=== PATIENT | male | born 1935 | race Caucasian/White ===

== ENCOUNTER 2016-11-23 14:08 | Observation (INO) ==
[2016-11-23] MEDS ORDERED: 0.9 % Sodium Chloride 1,000 ML IVC ONE ×2 (14:16→15:25)
--- NOTE | 2016-11-23 14:20 | Emergency Department Note ---
Disposition Clinical Impression: Dehydration, Elevated LFTs, Total bilirubin, elevated, ROSALINDA (acute kidney injury ) Leukocytosis Qualifiers: Leukocytosis type: unspecified Qualified Code(s): D72.829 - Elevated white blood cell count, unspecified Disposition: Admitted As Inpatient Condition: Fair Time of Disposition: 16:01 Nausea/Vomiting/Diarrhea HPI - General Chief complaint: ED Weakness Stated complaint: Dehydration Time Seen by Provider: 11/23/16 14:14 Source: patient, EMS Mode of arrival: EMS Limitations: no limitations Nursing Notes Reviewed: Yes Vital Signs Reviewed: Yes - History of Present Illness HPI Narrative: Patient is a 80-year-old male with past medical history of diabetes. He presents today via EMS due to nausea, vomiting, concerns for dehydration, general weakness. Patient says that he has been having episodes of nonbloody emesis for the past 4-5 days. Has not been able to keep any food down. He has been able to keep some liquids down. Denies any abdominal pain except for some mild soreness after vomiting. Denies any fevers, chest pain, shortness of breath, abdominal pain, URI symptoms, dysuria or hematuria. light headedness. EMS states that when they picked the patient up, BP was 80s over 50s. He was also tachycardic when he first got picked up. He was able to ambulate to the squad without any difficulty. - Related Data Home Medications Medication Instructions Recorded Confirmed Aspirin 81 mg PO DAILY 11/23/16 11/23/16 Losartan Potassium [Cozaar] 50 mg PO DAILY 11/23/16 11/23/16 Metformin HCl [Glucophage Xr] 750 mg PO QPM 11/23/16 11/23/16 Mirtazapine [Remeron] 15 mg PO HS 11/23/16 11/23/16 Multivit-Min/FA/Lycopen/Lutein 1 each PO DAILY 11/23/16 11/23/16 [Centrum Silver Tablet] Allergies Allergy/AdvReac Type Severity Reaction Status Date / Time No Known Allergies Allergy Verified 11/23/16 15:43 All systems ED: reviewed and negative except as stated. Constitutional: Denies: fever Cardiovascular: Denies: chest pain, palpitations Respiratory: Denies: cough, dyspnea, wheezes Gastrointestinal: Denies: nausea, vomiting, diarrhea Genitourinary: Denies: urgency, dysuria, frequency Musculoskeletal: Denies: back pain, neck pain Integumentary: Denies: rash Neurological: Reports: weakness. Denies: headache, numbness, paresthesias Psychiatric: Denies: anxiety, depression Past Medical History - Past Medical History Attestation: Yes The following information was validated with the patient. Source: patient Medical history: Reports: diabetes Physical Exam - General Limitations: no limitations General appearance: alert, in no apparent distress - Head Head exam: atraumatic, normocephalic, normal inspection - Eye Eye exam: Present: normal appearance, PERRL, EOMI - ENT ENT exam: mucous membranes moist, mucous membranes dry - Neck Neck exam: Present: normal inspection, full ROM, trachea midline - Chest Chest inspection: Present: normal inspection, symmetric chest wall rise - Respiratory Respiratory exam: Present: normal lung sounds bilaterally - Cardiovascular Cardiovascular exam: Present: regular rate, normal rhythm, normal heart sounds - Abdominal Exam Abdominal exam: Present: soft, Non-Tender. Absent: tenderness, distention, guarding, rebound, rigidity - Extremities Exam Extremities exam: Present: normal inspection, full ROM. Absent: tenderness, pedal edema - Neurological Exam Neurological exam: Present: alert, oriented X3 - Psychiatric Psychiatric exam: Present: normal affect, normal mood - Skin Skin exam: Present: warm, dry, intact, normal color Course Course Narrative: Blood pressure improved to 100/60 after 1L of NS by EMS, the rest of the vitals were within normal limits. Abdomen exam benign. Patient did have dry mucous membranes on exam. We will obtain basic blood work, troponin, EKG. EKG shows sinus rhythm with occasional PVC, no acute ST elevation or depression. Will order another 1 L normal saline bolus and continue to monitor blood pressure. 15:32 Patient has mild leukocytosis, ROSALINDA with creatinine doubled to 2.34 from previous lab value, elevated total bili (bedside US performed and gallbladder was not able to be seen on exam, no RUQ pain on exam). Will admit for the above plus dehydration. Will give another 1L fluid bolus. Patient continues to deny any abdominal pain, nausea. He has not vomited while in department. Declines pain or nausea medicine at this time. Vital Signs Temperature 97.9 F 11/23/16 14:14 Pulse Rate 95 11/23/16 14:14 Respiratory Rate 18 04/15/17 14:14 Blood Pressure 100/60 04/15/17 14:14 O2 Sat by Pulse Oximetry 94 11/23/16 14:14 Temperature 97.9 F 11/23/16 14:14 Pulse Rate 95 11/23/16 14:14 Respiratory Rate 18 11/23/16 14:14 Blood Pressure 100/60 11/23/16 14:14 O2 Sat by Pulse Oximetry 94 11/23/16 14:14 Oxygen Delivery Oxygen Delivery Room Air Nausea/Vomiting/Diarrhea - [facility] Narrative Medical decision making narrative: Blood pressure improved to 100/60 after 1L of NS by EMS, the rest of the vitals were within normal limits. Abdomen exam benign. Patient did have dry mucous membranes on exam. We will obtain basic blood work, troponin, EKG. EKG shows sinus rhythm with occasional PVC, no acute ST elevation or depression. Will order another 1 L normal saline bolus and continue to monitor blood pressure. 15:32 Patient has mild leukocytosis, ROSALINDA with creatinine doubled to 2.34 from previous lab value, elevated total bili (bedside US performed and gallbladder was not able to be seen on exam, no RUQ pain on exam). Will admit for the above plus dehydration. Will give another 1L fluid bolus. Patient continues to deny any abdominal pain, nausea. He has not vomited while in department. Declines pain or nausea medicine at this time. I examined this patient and my medical decision-making was reviewed with the MARBLE WORKER/PA/Advanced Practice Nurse/Resident Physician. I agree with the documented findings, disposition and treatment plan as described except to the extent set forth below. Saw this patient on arrival with EMS and Dr. Barrios, I agree with his evaluation and management plan, supravascular the patient's stay. Patient presents today with some nausea and vomiting that he has felt dehydrated last couple days. Blood pressure is initially 80 systolic when the squad got there they started him on fluid and is feeling better. Looks like his pressure runs about 110 normally. No abdominal pain or chest pain can undergo workup on him and reassessed. He is in agreement with plan. He is responding to fluids this time. 1520 hrs.: Patient's creatinine has doubled from his dehydration. He has some elevation of his LFTs but no abdominal pain. We tried to get a bedside ultrasound assesses gallbladder was difficult to visualize. Does not I abdominal pain at this time are to bring him in to the hospital. Impression is dehydration nausea and vomiting and acute kidney injury. Patient is agreeing to this admission. - Medical Records Medical records reviewed: Yes I reviewed the patient's medical records. - Lab Data Lab results reviewed: Yes I reviewed the patient's lab results. Result diagrams: 11/23/16 14:44 11/23/16 14:44 Lab Results 11/23/16 11/23/16 11/23/16 Range/Units 14:44 14:44 14:44 WBC 14.9 H (4.3-11.1) K/mcL RBC 3.93 L (4.19-5.50) M/mcL Hgb 12.2 L (12.9-16.9) g/dL Hct 35.6 L (37.5-50.1) % MCV 90.6 (83.0-100.0) fL MCH 31.0 (28.0-33.3) pg MCHC 34.3 (31.6-35.5) g/dL RDW 12.8 (11.5-14.5) % Plt Count 332 (140-400) K/mcL MPV 9.8 (9.4-12.4) fL Seg Neutrophils % 66.0 % Band Neutrophils % 14.0 H (0-4) % Lymphocytes % 8.0 % Monocytes % 2.0 % Eosinophils % 10.0 % Neutrophils # 11.9 H (1.6-8.9) K/mcL Lymphocytes # 1.2 (0.6-4.6) K/mcL Monocytes # 0.3 (0.0-1.3) K/mcL Eosinophils # 1.5 H (0.0-0.6) K/mcL Platelet Estimate Normal (Normal) Immature Plt Fraction 3.2 (1.1-6.1) % Hypochromasia Present A (Not Present) Sodium 133 L (136-145) mEq/L Potassium 3.4 L (3.5-4.5) mEq/L Chloride 104 (98-109) mEq/L Carbon Dioxide 18 L (19-29) mEq/L BUN 93 H (8-26) mg/dL Creatinine 2.34 H (0.72-1.25) mg/dL Est GFR ( Amer) 33 L (> 60) Est GFR (Non-Af Amer) 27 L (> 60) BUN/Creatinine Ratio 40 H (6-26) Glucose 161 H (70-99) mg/dL POC Glucose (58-89) Calculated Osmolality 308 H (280-300) Calcium 7.5 L (8.6-10.8) mg/dL Total Bilirubin 1.8 H (0.2-1.2) mg/dL AST 181 H (5-34) Units/L ALT 208 H (0-55) Units/L Alkaline Phosphatase 66 (38-126) Units/L Troponin I 0.02 (0-0.03) ng/mL Serum Total Protein 5.8 L (6.0-8.3) g/dL Albumin 2.5 L (3.5-5.0) g/dL Globulin 3.3 (2.4-3.5) g/dL Albumin/Globulin Ratio 0.8 L (1.1-2.2) 11/23/16 Range/Units 14:47 WBC (4.3-11.1) K/mcL RBC (4.19-5.50) M/mcL Hgb (12.9-16.9) g/dL Hct (37.5-50.1) % MCV (83.0-100.0) fL MCH (28.0-33.3) pg MCHC (31.6-35.5) g/dL RDW (11.5-14.5) % Plt Count (140-400) K/mcL MPV (9.4-12.4) fL Seg Neutrophils % % Band Neutrophils % (0-4) % Lymphocytes % % Monocytes % % Eosinophils % % Neutrophils # (1.6-8.9) K/mcL Lymphocytes # (0.6-4.6) K/mcL Monocytes # (0.0-1.3) K/mcL Eosinophils # (0.0-0.6) K/mcL Platelet Estimate (Normal) Immature Plt Fraction (1.1-6.1) % Hypochromasia (Not Present) Sodium (136-145) mEq/L Potassium (3.5-4.5) mEq/L Chloride (98-109) mEq/L Carbon Dioxide (19-29) mEq/L BUN (8-26) mg/dL Creatinine (0.72-1.25) mg/dL Est GFR ( Amer) (> 60) Est GFR (Non-Af Amer) (> 60) BUN/Creatinine Ratio (6-26) Glucose (70-99) mg/dL POC Glucose 153 H (58-89) Calculated Osmolality (280-300) Calcium (8.6-10.8) mg/dL Total Bilirubin (0.2-1.2) mg/dL AST (5-34) Units/L ALT (0-55) Units/L Alkaline Phosphatase (38-126) Units/L Troponin I (0-0.03) ng/mL Serum Total Protein (6.0-8.3) g/dL Albumin (3.5-5.0) g/dL Globulin (2.4-3.5) g/dL Albumin/Globulin Ratio (1.1-2.2) - EKG Data EKG attestation: Yes I reviewed and interpreted this EKG. EKG results narrative: 11/23/2016 at 14:22. Normal sinus rhythm with occasional PVC. Rate 95. [place] 159. QRS 92. QTC 440. Normal axis. No acute ST elevation or depression. No previous EKG for comparison. S.B.A.R. - S.B.ABharti Situation: Demographics, MOA Background: Presenting Complaint, Relevant PMH, Meds, & Allergies Assessment: Vital Signs, Course and respsone to treatment, Exam Concerns, Patient/Family Expectation, Pertinant Lab Results, Outstanding Labs Recommendation: Barrier(s) to disposition, Recommendation based on pending studies, treatments, or consults S.B.A.Jermaine Report Given to: Dr. Arsenio Aburto Repor Time: 16:00
[2016-11-23 14:51] LABS: Hematocrit 35.6 % (37.5-50.1); Hemoglobin 12.2 g/dL (12.9-16.9); Immature Platelets 3.2 % (1.1-6.1); Mean Corpuscular HGB Conc 34.3 g/dL (31.6-35.5); Mean Corpuscular Volume 90.6 fL (83.0-100.0); Mean Platelet Volume 9.8 fL (9.4-12.4); Platelet Count 332 K/mcL (140-400); Red Blood Count 3.93 M/mcL (4.19-5.50); Red Cell Distribution Width 12.8 % (11.5-14.5)
[2016-11-23 15:07] LABS: Albumin 2.5 g/dL (3.5-5.0); Albumin/Globulin Ratio 0.8 (1.1-2.2); Bilirubin,Total 1.8 mg/dL (0.2-1.2); Calcium 7.5 mg/dL (8.6-10.8); Globulin 3.3 g/dL (2.4-3.5); Potassium 3.4 mEq/L (3.5-4.5); Total Protein 5.8 g/dL (6.0-8.3)
[2016-11-23 15:08] LABS: Eosinophils # 1.5 K/mcL (0.0-0.6); Lymphocytes # 1.2 K/mcL (0.6-4.6); Monocytes # 0.3 K/mcL (0.0-1.3); Neutrophils # 11.9 K/mcL (1.6-8.9); Platelet Estimate Normal (Normal)
[2016-11-23 15:09] LABS: Hypochromasia Present (Not Present)
[2016-11-23] MEDS ORDERED: Ondansetron 4 MG/2 ML VIAL IVP PRN (16:18)
[2016-11-23] MEDS ORDERED: Naloxone 0.4 MG/ML INJ IVP PRN (16:18)
--- NOTE | 2016-11-23 16:18 | Internal Med History&Physical ---
Date of Encounter: 11/24/16 Time of Encounter: 16:17 Assessment and Plan (1) Food poisoning Current visit: Yes Status: Acute possible food posioning from eating the coconut pie, he has been vomiting multiple times. looks dehydrated, supportive treatment with IVF and anti emetics vitals stable/ will start on soft diet, advance as tolerated. Qualifiers: Encounter type: initial encounter Qualified Code(s): T62.91XA - Toxic effect of unspecified noxious substance eaten as food, accidental (unintentional ), initial encounter (2) Dehydration Current visit: Yes Status: Acute 2/2 n/v multiple episodes going on for the last 4-5 days. will continue IVF, oral hydration as tolerated. (3) Elevated LFTs Current visit: Yes Status: Acute unclear etiology, no h.o viral hepatitis in the past. will trend liver enzymes. non alcoholic no abdominal pain, may be transient 2/2 viral GE/food poisoning. (4) ROSALINDA (acute kidney injury) Current visit: Yes Status: Acute pre renal most likely from vomiting will continue IVF repeat chem, avoid nephrotoxic drugs. (5) COPD (chronic obstructive pulmonary disease) Current visit: Yes Status: Acute stable, not in exacerbation, will keep alb neb prn . sating high 90s in room air o2 as needed. Qualifiers: COPD type: emphysema Emphysema type: unspecified Qualified Code(s): J43.9 - Emphysema, unspecified Internal Medicine - H&P: HPI Chief complaint: n/v Admitted From: Home Plans for Post Hospital Care: Home History of present illness: Mr. 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 He presents today via EMS due to nausea, vomiting, concerns for dehydration, general weakness. Patient says that he has been having episodes of nonbloody emesis for the past 4-5 days. Has not been able to keep any food down. HE says he had a coconut pie on friday night and since the next morning he has been throwing up. He has been able to keep some liquids down. Denies any abdominal pain except for some mild soreness after vomiting. Denies any fevers, chest pain, shortness of breath, abdominal pain, URI symptoms, dysuria or hematuria. light headedness. EMS states that when they picked the patient up, BP was 80s over 50s. He was also tachycardic when he first got picked up. He was able to ambulate to the squad without any difficulty. he says the last time he vomited was this morning. Past Med Surg Social Fam HX - Past Medical History Medical history: diabetes Psychiatric history: no psych history - Social History Smoking Status: Never smoker Smokeless Tobacco Status: No Alcohol use: none Drug use: none - Family History Father Living Status: Hx Family Respiratory Disorders: Yes Hx Family Endocrine Disorder: Yes Internal Medicine - H&P: Meds Aspirin 81 mg PO DAILY 11/23/16 [History] Losartan Potassium [Cozaar] 50 mg PO DAILY 11/23/16 [History] Metformin HCl [Glucophage Xr] 750 mg PO QPM 11/23/16 [History] Mirtazapine [Remeron] 15 mg PO HS 11/23/16 [History] Multivit-Min/FA/Lycopen/Lutein [Centrum Silver Tablet] 1 each PO DAILY 11/23/16 [History] Proair Hfa 90 mcg IH Q6HR PRN 11/23/16 [History] Allergies No Known Allergies Allergy (Verified 11/23/16 15:43) All Systems PM: A 10-system review of systems was performed and is negative for pertinent findings except as documented above in the HPI. - Constitutional Vitals: Temp Pulse Resp BP Pulse Ox 0 F L 95 18 113/69 94 11/23/16 16:06 11/23/16 14:14 11/23/16 16:06 11/23/16 16:06 11/23/16 14:14 General appearance: Present: A&O X 3, no acute distress Exam: Mucous membranes look dry. Neck supple. Chest bilateral clear, no added sounds. CVS S1-S2, no murmurs rubs or gallops. Abdomen soft, nontender, bowel sounds are present. Extremities no edema Internal Med - H&P Results - Labs CBC & Chem 7: 11/24/16 05:05 11/24/16 05:05
[2016-11-23] MEDS ORDERED: D5% in Water 1,000 ML IVC PRN (16:19)
[2016-11-23] MEDS ORDERED: Dextrose Gel 15 GM PO PRN ×2 (16:19)
[2016-11-23] MEDS ORDERED: *HR* Dextrose 50 % in Water (Syg) 50 ML SYRINGE IVP PRN (16:19)
[2016-11-23] MEDS ORDERED: Albuterol 2.5 MG/3 ML NEBULIZER IH PRN (17:45)
[2016-11-23] MEDS: Insulin LISPRO 300 UNITS/3 ML VIAL SQ SCH ×2 (18:18→21:42)
[2016-11-23 18:20] LABS: Bilirubin,Urine Negative (Negative); Blood,Urine Small (Negative); Clarity,Urine Cloudy (Clear); Color,Urine Yellow (Yellow); Glucose,Urine (UA) Normal (Normal); Ketones,Urine Negative (Negative); Leukocyte Esterase,Urine Negative (Negative); Nitrite,Urine Negative (Negative); Protein,Urine 30 mg/dL (Neg-Trace); Specific Gravity,Urine 1.021 (1.010-1.025); Urobilinogen,Urine Normal (Normal)
[2016-11-23 18:23] LABS: RBC,Urine 0-3 per hpf (0-3); Squamous Epithelial Cell,Urine Moderate per lpf (None-Few); WBC,Urine 0-3 per hpf (0-3)
[2016-11-23] MEDS: 0.9 % Sodium Chloride 1,000 ML IVC SCH (18:23)
[2016-11-23 18:36] LABS: Bacteria,Urine Few per hpf (None-Few); Granular Casts,Urine Few per lpf (None Seen)
[2016-11-23] MEDS: Mirtazapine 15 MG TABLET PO SCH (21:43)
[2016-11-24] MEDS: 0.9 % Sodium Chloride 1,000 ML IVC SCH ×2 (04:23→14:57)
[2016-11-24 05:51] LABS: Basophils % 0.2 %; Eosinophils # 0.8 K/mcL (0.0-0.6); Eosinophils % 6.2 %; Hematocrit 33.8 % (37.5-50.1); Hemoglobin 11.6 g/dL (12.9-16.9); Immature Granulocytes % 0.6 % (0-4); Lymphocytes % 15.4 %; Mean Corpuscular HGB Conc 34.3 g/dL (31.6-35.5); Mean Corpuscular Hemoglobin 31.3 pg (28.0-33.3); Mean Corpuscular Volume 91.1 fL (83.0-100.0); Mean Platelet Volume 9.9 fL (9.4-12.4); Monocytes # 1.5 K/mcL (0.0-1.3); Monocytes % 11.6 %; Platelet Count 294 K/mcL (140-400); Red Blood Count 3.71 M/mcL (4.19-5.50); Red Cell Distribution Width 12.8 % (11.5-14.5)
[2016-11-24 06:00] LABS: Neutrophils # 8.5 K/mcL (1.6-8.9)
[2016-11-24] MEDS ORDERED: *HR* Enoxaparin 30 MG/0.3 ML SYRINGE SQ SCH (06:00)
[2016-11-24 06:09] LABS: Albumin 2.3 g/dL (3.5-5.0); Albumin/Globulin Ratio 0.7 (1.1-2.2); Bilirubin,Direct 0.6 mg/dL (0.0-0.5); Bilirubin,Indirect 0.5 mg/dL (0.0-1.2); Bilirubin,Total 1.1 mg/dL (0.2-1.2); Calcium 7.7 mg/dL (8.6-10.8); Globulin 3.2 g/dL (2.4-3.5); Potassium 3.7 mEq/L (3.5-4.5); Total Protein 5.5 g/dL (6.0-8.3)
[2016-11-24 06:21] LABS: Platelet Estimate Normal (Normal)
[2016-11-24] MEDS: Insulin LISPRO 300 UNITS/3 ML VIAL SQ SCH ×4 (07:32→21:18)
[2016-11-24] MEDS: Aspirin 81 MG TAB.CHEW PO SCH (08:08)
--- NOTE | 2016-11-24 10:23 | Internal Med Progress Note ---
<Theodore Burt - Last Filed: 11/24/16 10:30> Date of Encounter: 11/24/16 Time of Encounter: 10:20 - Assessment and plan (1) Nausea & vomiting Current Visit: Yes Status: Acute Assessment and plan: improving. continue PRN antiemetics and IV fluids. Qualifiers: Qualified Code(s): R11.2 - Nausea with vomiting, unspecified (2) Dehydration Current Visit: Yes Status: Acute Assessment and plan: continue IV fluids. He still appears somewhat dry with dry mucous membranes on exam. (3) Elevated LFTs Current Visit: Yes Status: Acute Assessment and plan: etiology unclear. possibly from acute illness. check a hepatitis panel. trending down. (4) Total bilirubin, elevated Current Visit: Yes Status: Resolved (5) ROSALINDA (acute kidney injury) Current Visit: Yes Status: Acute Assessment and plan: likley prerenal from dehydration. Improving good urine output Continue IVF. (6) Leukocytosis Current Visit: Yes Status: Acute Assessment and plan: trending down. Qualifiers: Leukocytosis type: unspecified Qualified Code(s): D72.829 - Elevated white blood cell count, unspecified (7) Food poisoning Current Visit: Yes Status: Acute Assessment and plan: suspicious for food poisoning given that his brother became ill as well. Qualifiers: Encounter type: initial encounter Qualified Code(s): T62.91XA - Toxic effect of unspecified noxious substance eaten as food, accidental (unintentional ), initial encounter (8) COPD (chronic obstructive pulmonary disease) Current Visit: Yes Status: Acute Assessment and plan: no exacerbation at this time. Qualifiers: COPD type: emphysema Emphysema type: unspecified Qualified Code(s): J43.9 - Emphysema, unspecified (9) Diabetes Current Visit: Yes Status: Acute Assessment and plan: NIDDM Currently at goal. continue sliding scale insulin for coverage. Qualifiers: Qualified Code(s): E11.9 - Type 2 diabetes mellitus without complications (10) DVT prophylaxis Current Visit: Yes Status: Acute Assessment and plan: change lovenox to heparin given his renal function. - Subjective Interval history: Mr. matthew is a very pleasant 80 y.o. male who was admitted for N/V dehydration and ROSALINDA. This was possibly from food poisoning. HE had cocanut pie with his brother and they both became ill thereafter. He states he has had N/V since Friday and has not been able to keep much down. He states that he is feeling better. He was able to keep down some noodles last night. He denies any diarrhea or abdominal pain. He states that he had a normal bowel movement last night. He denies any other complaints or concerns at this time. - Constitutional Vitals: Temp Pulse Resp BP Pulse Ox 98.7 F 75 18 106/71 95 11/24/16 06:58 11/24/16 06:58 11/24/16 06:58 11/24/16 06:58 11/24/16 06:58 General appearance: Present: A&O X 3, no acute distress - Head Head exam: Present: atraumatic, normocephalic - Eye Eye exam: Present: PERRL, conjuntiva pink, sclera anicteric Pupils: Present: PERRL - Neck Neck exam general surgery: Present: supple, trachea midline. Absent: lymphadenopathy - Respiratory Respiratory exam: Present: CTAB. Absent: accessory muscle use, rales, rhonchi, wheezes - Cardiovascular Cardiovascular exam: Present: RRR, +S1, +S2. Absent: diastolic murmur, gallop, rubs, systolic murmur - GI/Abdominal GI/Abdominal exam: Present: normal bowel sounds, soft, no peritoneal signs. Absent: distended, tenderness - Extremities Exam Extremities exam: Present: warm, radial pulses palpable and symetrical. Absent : calf tenderness, cyanotic, pedal edema - Neurological Exam Neurological exam: Present: oriented X3, no focal deficits - Skin Skin exam: Present: dry, intact Internal Medicine: Result - Labs CBC & Chem 7: 11/24/16 05:05 11/24/16 05:05 Labs: Short CBC 11/24/16 Range/Units 05:05 WBC 12.8 H (4.3-11.1) K/mcL Hgb 11.6 L (12.9-16.9) g/dL Hct 33.8 L (37.5-50.1) % Plt Count 294 (140-400) K/mcL Neutrophils # 8.5 (1.6-8.9) K/mcL BMP 11/24/16 05:05 Sodium 138 Potassium 3.7 Chloride 111 H Carbon Dioxide 19 BUN 59 H D Creatinine 1.39 H Glucose 128 H Calcium 7.7 L Liver Function 11/24/16 Range/Units 05:05 Total Bilirubin 1.1 (0.2-1.2) mg/dL Direct Bilirubin 0.6 H (0.0-0.5) mg/dL AST 106 H (5-34) Units/L ALT 162 H (0-55) Units/L Alkaline Phosphatase 83 (38-126) Units/L Albumin 2.3 L (3.5-5.0) g/dL Urine 11/23/16 Range/Units 18:10 Urine Color Yellow (Yellow) Urine Clarity Cloudy A (Clear) Urine pH 6.0 (5.0-8.0) pH Units Ur Specific [place] 1.021 (1.010-1.025) Urine Protein 30 H (Neg-Trace) mg/dL Urine Glucose (UA) Normal (Normal) mg/dL Consult Discharge Plan - Plan Referrals: Alek Sierra MD [Primary Care Provider] - <Juan Pablo Weiss - Last Filed: 11/24/16 11:04> Date of Encounter: 11/24/16 - Constitutional Vitals: Temp Pulse Resp BP Pulse Ox 98.7 F 75 18 106/71 95 11/24/16 06:58 11/24/16 06:58 11/24/16 06:58 11/24/16 06:58 11/24/16 06:58 Internal Medicine: Result - Labs CBC & Chem 7: 11/24/16 05:05 11/24/16 05:05 Labs: Short CBC 11/24/16 Range/Units 05:05 WBC 12.8 H (4.3-11.1) K/mcL Hgb 11.6 L (12.9-16.9) g/dL Hct 33.8 L (37.5-50.1) % Plt Count 294 (140-400) K/mcL Neutrophils # 8.5 (1.6-8.9) K/mcL BMP 11/24/16 05:05 Sodium 138 Potassium 3.7 Chloride 111 H Carbon Dioxide 19 BUN 59 H D Creatinine 1.39 H Glucose 128 H Calcium 7.7 L Liver Function 11/24/16 Range/Units 05:05 Total Bilirubin 1.1 (0.2-1.2) mg/dL Direct Bilirubin 0.6 H (0.0-0.5) mg/dL AST 106 H (5-34) Units/L ALT 162 H (0-55) Units/L Alkaline Phosphatase 83 (38-126) Units/L Albumin 2.3 L (3.5-5.0) g/dL Urine 11/23/16 Range/Units 18:10 Urine Color Yellow (Yellow) Urine Clarity Cloudy A (Clear) Urine pH 6.0 (5.0-8.0) pH Units Ur Specific [place] 1.021 (1.010-1.025) Urine Protein 30 H (Neg-Trace) mg/dL Urine Glucose (UA) Normal (Normal) mg/dL - Attending Attestation I examined this patient and my medical decision-making was reviewed with the AIDS NURSE/PA/Advanced Practice Nurse/Resident Physician. I agree with the documented findings, disposition and treatment plan as described except to the extent set forth below. ROSALINDA prerenal, iv fluids, agree with dr burt.
[2016-11-24] MEDS: *HR* Heparin 5,000 UNIT/ML VIAL SQ SCH (16:55)
[2016-11-24] MEDS: Mirtazapine 15 MG TABLET PO SCH (21:22)
[2016-11-25] MEDS: 0.9 % Sodium Chloride 1,000 ML IVC SCH ×2 (02:30→09:01)
[2016-11-25 04:03] LABS: Hematocrit 31.6 % (37.5-50.1); Hemoglobin 10.8 g/dL (12.9-16.9); Mean Corpuscular HGB Conc 34.2 g/dL (31.6-35.5); Mean Corpuscular Hemoglobin 31.5 pg (28.0-33.3); Mean Corpuscular Volume 92.1 fL (83.0-100.0); Mean Platelet Volume 10.3 fL (9.4-12.4); Platelet Count 265 K/mcL (140-400); Red Blood Count 3.43 M/mcL (4.19-5.50)
[2016-11-25 04:22] LABS: Alanine Aminotransferase 123 Units/L (0-55); Albumin 2.1 g/dL (3.5-5.0); Albumin/Globulin Ratio 0.7 (1.1-2.2); Alkaline Phosphatase 130 Units/L (38-126); Aspartate Amino Transferase 66 Units/L (5-34); BUN/Creatinine Ratio 30 (6-26); Bilirubin,Total 0.9 mg/dL (0.2-1.2); Calcium 7.7 mg/dL (8.6-10.8); Carbon Dioxide 19 mEq/L (19-29); Chloride 115 mEq/L (98-109); Globulin 3.1 g/dL (2.4-3.5); Glucose 110 mg/dL (70-99); Osmolality,Calculated 296 (280-300); Potassium 3.7 mEq/L (3.5-4.5); Sodium 140 mEq/L (136-145); Total Protein 5.2 g/dL (6.0-8.3); eGFR For African Americans > 60 (> 60); eGFR For Non-African Americans > 60 (> 60)
[2016-11-25 04:23] LABS: Blood Urea Nitrogen 27 mg/dL (8-26)
[2016-11-25 04:50] LABS: Eosinophils # 0.4 K/mcL (0.0-0.6); Lymphocytes # 1.3 K/mcL (0.6-4.6); Monocytes # 1.3 K/mcL (0.0-1.3); Neutrophils # 7.6 K/mcL (1.6-8.9)
[2016-11-25 04:51] LABS: Folate 13.7 ng/mL (7.0-31.4); Platelet Estimate Normal (Normal); Reactive Lymphocytes Present (Not Present)
[2016-11-25] MEDS: *HR* Heparin 5,000 UNIT/ML VIAL SQ SCH (05:13)
[2016-11-25 06:52] VITALS: BP 128/69
[2016-11-25] MEDS: Aspirin 81 MG TAB.CHEW PO SCH (09:00)
[2016-11-25] MEDS: Insulin LISPRO 300 UNITS/3 ML VIAL SQ SCH (09:00)
--- NOTE | 2016-11-25 09:03 | Discharge Summary ---
<CarmelTheodore Hill - Last Filed: 11/25/16 09:15> Date of Encounter: 11/25/16 Time of Encounter: 09:01 - Discharge Diagnosis (1) Nausea & vomiting Priority: Primary Status: Acute Qualifiers: Qualified Code(s): R11.2 - Nausea with vomiting, unspecified (2) Dehydration Priority: Secondary Status: Acute (3) Elevated LFTs Priority: Secondary Status: Acute (4) Total bilirubin, elevated Priority: Secondary Status: Resolved (5) ROSALINDA (acute kidney injury) Priority: Secondary Status: Acute (6) Leukocytosis Priority: Secondary Status: Acute Qualifiers: Leukocytosis type: unspecified Qualified Code(s): D72.829 - Elevated white blood cell count, unspecified (7) Food poisoning Priority: Secondary Status: Acute Qualifiers: Encounter type: initial encounter Qualified Code(s): T62.91XA - Toxic effect of unspecified noxious substance eaten as food, accidental (unintentional ), initial encounter (8) COPD (chronic obstructive pulmonary disease) Priority: Secondary Status: Acute Qualifiers: COPD type: emphysema Emphysema type: unspecified Qualified Code(s): J43.9 - Emphysema, unspecified (9) Diabetes Priority: Secondary Status: Acute Qualifiers: Qualified Code(s): E11.9 - Type 2 diabetes mellitus without complications (10) DVT prophylaxis Priority: Secondary Status: Acute - Discharge Medications Prescriptions: Ondansetron [Zofran] 4 mg PO Q8HR #20 tablet Home Medications: Aspirin 81 mg PO DAILY 11/23/16 [History] Losartan Potassium [Cozaar] 50 mg PO DAILY 11/23/16 [History] Metformin HCl [Glucophage Xr] 750 mg PO QPM 11/23/16 [History] Mirtazapine [Remeron] 15 mg PO HS 11/23/16 [History] Multivit-Min/FA/Lycopen/Lutein [Centrum Silver Tablet] 1 each PO DAILY 11/23/16 [History] Proair Hfa 90 mcg IH Q6HR PRN 11/23/16 [History] Ondansetron [Zofran] 4 mg PO Q8HR #20 tablet 11/25/16 [Rx] Allergies/Adverse Reactions: Allergies No Known Allergies Allergy (Verified 11/23/16 15:43) Date of admission: 11/23/16 15:52 Primary care physician: Alek Sierra MD Discharging clinician: Theodore Burt Anticipated date of discharge: 11/25/16 - Patient Status Disposition: Home, Self-Care Condition: Fair Functional capacity at discharge: independent ambulation Overall status at discharge: patient is back to baseline - Discharge Instructions Instructions: Ondansetron (By mouth) Follow Up With: Alek Sierra MD [Primary Care Provider] - 12/02/16 1:00 pm (Web request) - Diet and Activity Activity: increase activity as tolerated Diet: diabetic diet Hospital course: Mr. Alonzo is a 80 year old male with past personal history of diabetes and diabetes. He was admitted to the [facility] for intractable nausea and vomiting and acute kidney injury. Most likely this was due to food poisoning given his brother also became ill after eating a coconut pie with him. The patient was treated with IV fluids and supportive care. His renal function has normalized. He is tolerating a diet ambulating and having normal bowel and bladder function at this time. We will discharge him home with some when necessary Zofran should he become nauseated again. Patient voices back understanding and agreement to the above plan. - Time Spent with Patient Total time spent providing and/or coordinating discharge services: - Constitutional Vitals: Temp Pulse Resp BP Pulse Ox 98.5 F 69 16 128/69 95 11/25/16 06:50 11/25/16 06:50 11/25/16 06:50 11/25/16 06:50 11/25/16 06:50 Exam: General: This is a 80 Year old male who is alert and orientated to person place time and situation. No acute distress. HEENT: Head is normocephalic atraumatic pupils are equally round reactive to light and accommodation, sclera are anicteric, nares are patent, normal external appearance of the nose and ears, the posterior pharynx is pink without cobblestoning or exudate. Uvula is midline, tongue is midline, dentition is intact. Heart: Regular rate and rhythm without murmur rubs or gallops, S1, S2, without S3 or S4. Capillary refills less than 2 seconds. Radial pulses are 2 out of 4 and synchronous. No JVD with inspection of the neck. Lungs: Clear to auscultation bilaterally, normal effort. Abdomen: Bowel sounds are normoactive, no bruits, abdomen is soft, no tenderness to palpation, no organomegaly noted, no guarding throughout the exam. Musculoskeletal: No gross deformity noted, moves all limbs without difficulty. Integument: Cool, dry, normal turgor, no edema. <Juan Pablo Weiss - Last Filed: 11/25/16 16:08> Date of Encounter: 11/25/16 Date of admission: 11/23/16 15:52 Primary care physician: Alek iSerra MD Hospital course: Mr. Alonzo is a 80 year old male - Time Spent with Patient Total time spent providing and/or coordinating discharge services: - Constitutional Vitals: Temp Pulse Resp BP Pulse Ox 98.5 F 69 16 128/69 95 11/25/16 06:50 11/25/16 06:50 11/25/16 06:50 11/25/16 06:50 11/25/16 06:50 - Attending Attestation I examined this patient and my medical decision-making was reviewed with the TOB[employer] SCRAP SIFTER/PA/Advanced Practice Nurse/Resident Physician. I agree with the documented findings, disposition and treatment plan as described except to the extent set forth below. Renal function improved, d/c today, encourage po hydration. agree with Dr. Burt.
--- NOTE | 2016-11-25 09:06 | Electrocardiograph Report ---
[place] [id number] Test Date: 2016-11-23 Pat Name: Vlad Alonzo Department: 105 Room: 2A14 Gender: M [employer] Engineering Advisor: : [id number] Requested By: Lane Feng Order Number: [id number] Reading MD: Porfirio Pfeiffer MD Measurements Intervals [place] Rate: 95 P: 36 PA: 159 QRS: 28 QRSD: 92 T: 49 QT: 388 QTc: 440 Interpretive Statements SINUS RHYTHM WITH OCCASIONAL VENTRICULAR PREMATURE COMPLEXES WITH OCCASIONAL SUPRAVENTRICULAR PREMATURE COMPLEXES Electronically Signed On 11-25-2016 9:05:08 EDT by Porfirio Pfeiffer MD
[2016-11-25 10:15] LABS: Hepatitis B Core IgM Nonreactive (Nonreactive); Hepatitis B Surface Antigen Nonreactive (Nonreactive); Hepatitis C Virus Antibody Nonreactive (Nonreactive)
[2016-11-25 10:57] LABS: C-Reactive Protein 82 mg/L (Less than 5)
[2016-11-25 13:55] LABS: Hepatitis A Antibody IgM Nonreactive (Nonreactive)
== END 2016-11-25 10:54 | disposition home or self-care (01) ==
LOC: EMEROO 14:08 → 2ANU 14:08
PROVIDERS: ADMIT Internal Medicine Endocrinology, Diabetes & Metabolism; ATTEND Internal Medicine

== ENCOUNTER 2021-11-20 12:45 | Inpatient (IN) ==
[2021-11-20 14:04] LABS: Basophils # 0.1 K/mcL (0.0-0.2); Basophils % 0.9 %; Eosinophils # 0.5 K/mcL (0.0-0.6); Eosinophils % 6.2 %; Hematocrit 31.2 % (37.5-50.1); Hemoglobin 10.2 g/dL (12.9-16.9); Immature Granulocytes % 0.3 % (0-4); Lymphocytes # 2.4 K/mcL (0.6-4.6); Lymphocytes % 30.9 %; Mean Corpuscular HGB Conc 32.7 g/dL (31.6-35.5); Mean Corpuscular Hemoglobin 31.9 pg (28.0-33.3); Mean Corpuscular Volume 97.5 fL (83.0-100.0); Mean Platelet Volume 9.6 fL (9.4-12.4); Monocytes # 0.8 K/mcL (0.0-1.3); Monocytes % 10.8 %; Neutrophils # 3.9 K/mcL (1.6-8.9); Platelet Count 360 K/mcL (140-400); Segmented Neutrophils % 50.9 %; White Blood Count 7.7 K/mcL (4.3-11.1)
[2021-11-20 14:24] LABS: Albumin 3.1 g/dL (3.5-5.7); Albumin/Globulin Ratio 0.6 (1.1-2.2); Bilirubin,Direct 0.2 mg/dL (0.0-0.2); Bilirubin,Indirect 0.5 mg/dL (0.0-1.0); Bilirubin,Total 0.7 mg/dL (0.3-1.0); Calcium 9.3 mg/dL (8.6-10.3); Globulin 4.9 g/dL (2.4-3.5); Potassium 5.2 mEq/L (3.5-5.1)
[2021-11-20] MEDS ORDERED: Ringers Solution, Lactated 1,000 ML IVC ONE (18:11)
[2021-11-20 18:26] LABS: Bilirubin,Urine Negative (Negative); Blood,Urine Small (Negative); Clarity,Urine Clear (Clear); Color,Urine Yellow (Yellow); Glucose,Urine (UA) Normal (Normal); Hyaline Casts,Urine Few per lpf (None Seen); Ketones,Urine Negative (Negative); Leukocyte Esterase,Urine Negative (Negative); Mucus,Urine Few per lpf (None-Few); Nitrite,Urine Negative (Negative); Protein,Urine 30 mg/dL (Neg-Trace); RBC,Urine 15-30 per hpf (0-3); Specific Gravity,Urine 1.014 (1.010-1.025); Urobilinogen,Urine Normal (Normal); WBC,Urine 0-3 per hpf (0-3)
[2021-11-20] MEDS ORDERED: Melatonin 3 MG TABLET PO PRN (19:16)
[2021-11-20] MEDS ORDERED: Naloxone 0.4 MG/ML INJ IVP PRN (19:16)
[2021-11-20] MEDS ORDERED: Acetaminophen 325 MG TABLET PO PRN (19:16)
[2021-11-20] MEDS ORDERED: Calcium Gluconate 1gm/50mL 1 GM/50 ML BAG IVPB ONE (19:33)
[2021-11-20] MEDS ORDERED: Insulin Human Regular 10 UNIT in 0.9 % Sodium Chloride 10 ML IV ONE (19:52)
[2021-11-20] MEDS ORDERED: *HR* Dextrose 50 % in Water (Syg) 50 ML SYRINGE IVP ONE (19:52)
[2021-11-20] MEDS ORDERED: Dextrose 4 GM Chewable Tablets PO PRN ×2 (19:53)
[2021-11-20] MEDS ORDERED: D5% in Water 1,000 ML IVC PRN (19:53)
[2021-11-20] MEDS: SODIUM ZIRCONIUM CYCLOSILICATE 5 GM POWD.PACK PO SCH ×2 (22:14→23:54)
[2021-11-20 22:16] LABS: Protein/Creatinine Ratio,Urine 0.98 mg/mg (0.00-0.20); Sodium, Urine 57.9 mEq/L
[2021-11-20] MEDS: *HR* Dextrose 50 % in Water (Syg) 50 ML SYRINGE IVP PRN (22:18)
[2021-11-20] MEDS: *HR* Heparin 5,000 UNIT/ML VIAL SQ SCH (22:19)
[2021-11-20] MEDS: 0.9 % Sodium Chloride 1,000 ML IVC SCH (22:19)
[2021-11-21] MEDS: *HR* Dextrose 50 % in Water (Syg) 50 ML SYRINGE IVP PRN (00:13)
[2021-11-21 05:57] LABS: Hematocrit 29.1 % (37.5-50.1); Hemoglobin 9.4 g/dL (12.9-16.9); Mean Corpuscular HGB Conc 32.3 g/dL (31.6-35.5); Mean Corpuscular Hemoglobin 31.1 pg (28.0-33.3); Mean Corpuscular Volume 96.4 fL (83.0-100.0); Mean Platelet Volume 9.7 fL (9.4-12.4); Platelet Count 299 K/mcL (140-400); Red Blood Count 3.02 M/mcL (4.19-5.50); Red Cell Distribution Width 13.8 % (11.5-14.5); White Blood Count 6.6 K/mcL (4.3-11.1)
[2021-11-21 06:00] LABS: INR 1.2; Prothrombin Time 13.6 Seconds (9.4-12.1)
[2021-11-21 06:02] LABS: Activated Partial Thrombo Time 40.8 Seconds (26.0-36.0)
[2021-11-21 06:07] LABS: Estimated Average Glucose 111 mg/dl; Hemoglobin A1C 5.5 %
[2021-11-21 06:27] LABS: Calcium 9.2 mg/dL (8.6-10.3); Magnesium 1.9 mg/dL (1.6-2.6); Phosphorous 4.2 mg/dL (2.7-4.5); Potassium 4.3 mEq/L (3.5-5.1)
[2021-11-21 06:28] LABS: Chol/HDL Ratio 6.3 (0-4.9)
[2021-11-21 06:30] LABS: % Iron Saturation 30 % (20-55); Iron 84 mcg/dL (65-175); Transferrin 201 mg/dL (203-362)
[2021-11-21] MEDS: *HR* Heparin 5,000 UNIT/ML VIAL SQ SCH ×3 (06:31→20:00)
[2021-11-21 06:55] LABS: Ferritin 893 ng/mL (20-250)
[2021-11-21 07:01] LABS: Folate > 22.3 ng/mL (3.0-16.0); Vitamin B12 1041 pg/mL (250-1100)
[2021-11-21] MEDS: Tiotropium 10 INH DOSE IH SCH (07:44)
[2021-11-21] MEDS: Aspirin 81 MG TAB.CHEW PO SCH (09:17)
[2021-11-21] MEDS: amLODIPine 5 MG TABLET PO SCH (09:17)
[2021-11-21 10:02] LABS: Prostate Specific Antigen 0.39 ng/mL (Less than 4.00)
[2021-11-21] MEDS: 0.9 % Sodium Chloride 1,000 ML IVC SCH (10:47)
[2021-11-21] MEDS: Mirtazapine 15 MG TABLET PO SCH (20:00)
[2021-11-22 05:06] LABS: Basophils # 0.1 K/mcL (0.0-0.2); Basophils % 0.9 %; Eosinophils # 0.5 K/mcL (0.0-0.6); Eosinophils % 7.4 %; Hematocrit 28.8 % (37.5-50.1); Hemoglobin 9.5 g/dL (12.9-16.9); Immature Granulocytes % 0.3 % (0-4); Lymphocytes # 1.9 K/mcL (0.6-4.6); Lymphocytes % 28.6 %; Mean Corpuscular Hemoglobin 31.7 pg (28.0-33.3); Mean Platelet Volume 9.7 fL (9.4-12.4); Monocytes # 0.8 K/mcL (0.0-1.3); Monocytes % 11.7 %; Neutrophils # 3.5 K/mcL (1.6-8.9); Platelet Count 296 K/mcL (140-400); Red Cell Distribution Width 13.7 % (11.5-14.5); Segmented Neutrophils % 51.1 %; White Blood Count 6.8 K/mcL (4.3-11.1)
[2021-11-22] MEDS: *HR* Heparin 5,000 UNIT/ML VIAL SQ SCH ×3 (05:12→20:08)
[2021-11-22 05:28] LABS: Calcium 8.8 mg/dL (8.6-10.3); Potassium 4.2 mEq/L (3.5-5.1)
[2021-11-22] MEDS: Tiotropium 10 INH DOSE IH SCH (07:43)
[2021-11-22] MEDS ORDERED: 0.9 % Sodium Chloride 1,000 ML IVC SCH (07:45)
[2021-11-22] MEDS: amLODIPine 5 MG TABLET PO SCH (08:27)
[2021-11-22] MEDS: Aspirin 81 MG TAB.CHEW PO SCH (08:27)
[2021-11-22] MEDS: carvediloL 6.25 MG TABLET PO SCH ×2 (09:55→16:33)
[2021-11-22] MEDS: Mirtazapine 15 MG TABLET PO SCH (20:08)
[2021-11-23 02:47] LABS: Basophils # 0.1 K/mcL (0.0-0.2); Basophils % 0.8 %; Eosinophils # 0.3 K/mcL (0.0-0.6); Eosinophils % 4.7 %; Hematocrit 29.7 % (37.5-50.1); Hemoglobin 9.8 g/dL (12.9-16.9); Immature Granulocytes % 0.3 % (0-4); Lymphocytes # 1.4 K/mcL (0.6-4.6); Lymphocytes % 21.8 %; Mean Corpuscular Hemoglobin 31.9 pg (28.0-33.3); Mean Corpuscular Volume 96.7 fL (83.0-100.0); Mean Platelet Volume 9.9 fL (9.4-12.4); Monocytes # 0.7 K/mcL (0.0-1.3); Monocytes % 11.1 %; Platelet Count 274 K/mcL (140-400); Red Blood Count 3.07 M/mcL (4.19-5.50); Segmented Neutrophils % 61.3 %; White Blood Count 6.6 K/mcL (4.3-11.1)
[2021-11-23 02:56] LABS: Calcium 8.7 mg/dL (8.6-10.3); Potassium 4.2 mEq/L (3.5-5.1)
[2021-11-23] MEDS ORDERED: Ondansetron 4 MG/2 ML VIAL IVP ONE (04:34)
[2021-11-23] MEDS: *HR* Heparin 5,000 UNIT/ML VIAL SQ SCH ×3 (05:00→21:37)
[2021-11-23] MEDS: Tiotropium 10 INH DOSE IH SCH (07:32)
[2021-11-23] MEDS: carvediloL 6.25 MG TABLET PO SCH ×2 (07:52→16:27)
[2021-11-23] MEDS: amLODIPine 5 MG TABLET PO SCH (07:52)
[2021-11-23] MEDS: Aspirin 81 MG TAB.CHEW PO SCH (07:52)
[2021-11-23] MEDS: Sennosides/Docusate Sodium TABLET PO SCH ×2 (08:50→21:37)
[2021-11-23] MEDS ORDERED: carvediloL 6.25 MG TABLET PO ONE (08:51)
[2021-11-23] MEDS: Ondansetron 4 MG/2 ML VIAL IVP PRN (12:01)
[2021-11-23] MEDS ORDERED: *HR* Promethazine 25 MG/ML VIAL IM ONE (17:26)
[2021-11-23] MEDS: Mirtazapine 15 MG TABLET PO SCH (21:37)
[2021-11-24 03:09] LABS: Basophils % 0.3 %; Hematocrit 26.9 % (37.5-50.1); Hemoglobin 9.2 g/dL (12.9-16.9); Immature Granulocytes % 0.8 % (0-4); Lymphocytes % 16.4 %; Mean Corpuscular HGB Conc 34.2 g/dL (31.6-35.5); Mean Corpuscular Hemoglobin 32.7 pg (28.0-33.3); Mean Corpuscular Volume 95.7 fL (83.0-100.0); Mean Platelet Volume 10.1 fL (9.4-12.4); Monocytes # 0.8 K/mcL (0.0-1.3); Monocytes % 6.5 %; Neutrophils # 9.4 K/mcL (1.6-8.9); Platelet Count 243 K/mcL (140-400); Red Blood Count 2.81 M/mcL (4.19-5.50); Red Cell Distribution Width 14.3 % (11.5-14.5)
[2021-11-24 03:13] LABS: White Blood Count 12.4 K/mcL (4.3-11.1)
[2021-11-24 03:27] LABS: Calcium 8.4 mg/dL (8.6-10.3); Potassium 4.2 mEq/L (3.5-5.1)
[2021-11-24] MEDS: *HR* Heparin 5,000 UNIT/ML VIAL SQ SCH ×3 (06:38→20:58)
[2021-11-24] MEDS: Tiotropium 10 INH DOSE IH SCH (08:04)
[2021-11-24 10:28] LABS: Albumin 2.6 g/dL (3.5-5.7); Albumin/Globulin Ratio 0.6 (1.1-2.2); Bilirubin,Direct 0.4 mg/dL (0.0-0.2); Bilirubin,Indirect 0.5 mg/dL (0.0-1.0); Bilirubin,Total 0.9 mg/dL (0.3-1.0); Globulin 4.2 g/dL (2.4-3.5); Total Protein 6.8 g/dL (6.4-8.9)
[2021-11-24] MEDS: amLODIPine 5 MG TABLET PO SCH (11:13)
[2021-11-24] MEDS: carvediloL 6.25 MG TABLET PO SCH ×2 (11:13→16:46)
[2021-11-24] MEDS: Aspirin 81 MG TAB.CHEW PO SCH (11:13)
[2021-11-24] MEDS: Sennosides/Docusate Sodium TABLET PO SCH ×2 (11:13→20:58)
[2021-11-24] MEDS: 0.9 % Sodium Chloride 1,000 ML IVC SCH ×2 (12:27→22:27)
[2021-11-24] MEDS: Ondansetron 4 MG/2 ML VIAL IVP PRN (14:54)
[2021-11-24] MEDS: Mirtazapine 15 MG TABLET PO SCH (20:58)
[2021-11-24] MEDS ORDERED: Pantoprazole 40 MG VIAL IVP ONE (23:58)
[2021-11-25] MEDS: 0.9 % Sodium Chloride 1,000 ML IVC SCH (05:10)
[2021-11-25] MEDS: *HR* Heparin 5,000 UNIT/ML VIAL SQ SCH ×3 (05:31→20:33)
[2021-11-25 07:40] LABS: Basophils % 0.3 %; Hematocrit 26.1 % (37.5-50.1); Hemoglobin 8.5 g/dL (12.9-16.9); Immature Granulocytes % 0.4 % (0-4); Lymphocytes # 1.6 K/mcL (0.6-4.6); Lymphocytes % 17.2 %; Mean Corpuscular HGB Conc 32.6 g/dL (31.6-35.5); Mean Corpuscular Hemoglobin 31.4 pg (28.0-33.3); Mean Corpuscular Volume 96.3 fL (83.0-100.0); Mean Platelet Volume 10.3 fL (9.4-12.4); Monocytes % 10.9 %; Neutrophils # 6.6 K/mcL (1.6-8.9); Platelet Count 247 K/mcL (140-400); Red Blood Count 2.71 M/mcL (4.19-5.50); Red Cell Distribution Width 14.5 % (11.5-14.5); Segmented Neutrophils % 71.2 %; White Blood Count 9.2 K/mcL (4.3-11.1)
[2021-11-25 07:58] LABS: Calcium 7.7 mg/dL (8.6-10.3); Platelet Estimate Normal (Normal); Reactive Lymphocytes Present (Not Present)
[2021-11-25] MEDS: Tiotropium 10 INH DOSE IH SCH (07:58)
[2021-11-25] MEDS: carvediloL 6.25 MG TABLET PO SCH ×2 (09:25→17:35)
[2021-11-25] MEDS: Aspirin 81 MG TAB.CHEW PO SCH (09:25)
[2021-11-25] MEDS: Albumin 25% 25gram/100mL 25 GM/100 ML IV.SOLN IVC SCH ×4 (09:26→16:56)
[2021-11-25] MEDS: Sennosides/Docusate Sodium TABLET PO SCH ×2 (09:26→20:32)
[2021-11-25] MEDS: Pantoprazole 40 MG VIAL IVP SCH (09:26)
[2021-11-25] MEDS ORDERED: Sodium Bicarbonate 150 MEQ in D5% in Water 1,000 ML IVC SCH (11:30)
[2021-11-25] MEDS: Sodium Bicarbonate 150 MEQ in Water for inj. (sterile) 1,000 ML IVC SCH ×2 (12:59→23:22)
[2021-11-25] MEDS: Mirtazapine 15 MG TABLET PO SCH (20:32)
[2021-11-25] MEDS: Lactobacillus 1 EACH CAP.SPRINK PO SCH (20:32)
[2021-11-26 01:35] LABS: Basophils % 0.3 %; Eosinophils % 0.4 %; Hemoglobin 8.2 g/dL (12.9-16.9); Immature Granulocytes % 0.6 % (0-4); Lymphocytes # 1.4 K/mcL (0.6-4.6); Lymphocytes % 19.7 %; Mean Corpuscular HGB Conc 34.2 g/dL (31.6-35.5); Mean Corpuscular Volume 93.8 fL (83.0-100.0); Mean Platelet Volume 10.1 fL (9.4-12.4); Monocytes # 0.9 K/mcL (0.0-1.3); Monocytes % 12.5 %; Neutrophils # 4.6 K/mcL (1.6-8.9); Platelet Count 225 K/mcL (140-400); Red Blood Count 2.56 M/mcL (4.19-5.50); Red Cell Distribution Width 14.2 % (11.5-14.5); Segmented Neutrophils % 66.5 %; White Blood Count 6.9 K/mcL (4.3-11.1)
[2021-11-26 02:54] LABS: Potassium 3.5 mEq/L (3.5-5.1)
[2021-11-26] MEDS: *HR* Heparin 5,000 UNIT/ML VIAL SQ SCH ×3 (05:02→22:02)
[2021-11-26] MEDS: Tiotropium 10 INH DOSE IH SCH (07:43)
[2021-11-26] MEDS: Sennosides/Docusate Sodium TABLET PO SCH (07:48)
[2021-11-26] MEDS: Pantoprazole 40 MG VIAL IVP SCH (07:55)
[2021-11-26] MEDS: Lactobacillus 1 EACH CAP.SPRINK PO SCH ×2 (07:55→22:02)
[2021-11-26] MEDS: Sodium Bicarbonate 150 MEQ in Water for inj. (sterile) 1,000 ML IVC SCH ×2 (07:55→18:35)
[2021-11-26] MEDS: Aspirin 81 MG TAB.CHEW PO SCH (07:55)
[2021-11-26] MEDS: carvediloL 6.25 MG TABLET PO SCH ×2 (08:03→16:22)
[2021-11-26] MEDS: Albumin 25% 25gram/100mL 25 GM/100 ML IV.SOLN IVPB SCH ×2 (16:09→23:28)
[2021-11-26] MEDS: Mirtazapine 15 MG TABLET PO SCH (22:02)
[2021-11-27] MEDS ORDERED: Morphine Sulfate 2 MG/ML SYRINGE IVP ONE (03:18)
[2021-11-27] MEDS: Ipratropium/Albuterol Neb 3 ML IH PRN (04:05)
[2021-11-27] MEDS: *HR* Heparin 5,000 UNIT/ML VIAL SQ SCH ×2 (05:14→17:02)
[2021-11-27] MEDS ORDERED: Azithromycin 500 MG in 0.9 % Sodium Chloride 250 ML IVPB ONE (07:40)
[2021-11-27] MEDS: Ipratropium/Albuterol Neb 3 ML IH SCH ×4 (08:12→20:35)
[2021-11-27] MEDS: Lactobacillus 1 EACH CAP.SPRINK PO SCH ×2 (08:27→21:33)
[2021-11-27] MEDS: Aspirin 81 MG TAB.CHEW PO SCH (08:27)
[2021-11-27] MEDS: carvediloL 6.25 MG TABLET PO SCH ×2 (08:28→17:01)
[2021-11-27] MEDS: Albumin 25% 25gram/100mL 25 GM/100 ML IV.SOLN IVPB SCH ×2 (08:29→17:00)
[2021-11-27] MEDS: MethylPREDNISolone 40 MG/ML VIAL IVP SCH ×2 (08:31→17:02)
[2021-11-27] MEDS: Pantoprazole 40 MG VIAL IVP SCH (08:32)
[2021-11-27] MEDS ORDERED: cefTRIAXone 1,000 MG in 0.9 % Sodium Chloride 10 ML IVP SCH (09:00)
[2021-11-27 10:15] LABS: Basophils % 0.2 %; Eosinophils % 0.3 %; Hemoglobin 7.6 g/dL (12.9-16.9); Immature Granulocytes % 0.7 % (0-4); Lymphocytes # 1.1 K/mcL (0.6-4.6); Lymphocytes % 8.5 %; Mean Corpuscular HGB Conc 34.5 g/dL (31.6-35.5); Mean Corpuscular Hemoglobin 32.2 pg (28.0-33.3); Mean Corpuscular Volume 93.2 fL (83.0-100.0); Mean Platelet Volume 10.3 fL (9.4-12.4); Monocytes # 1.2 K/mcL (0.0-1.3); Monocytes % 9.5 %; Neutrophils # 10.6 K/mcL (1.6-8.9); Platelet Count 257 K/mcL (140-400); Red Blood Count 2.36 M/mcL (4.19-5.50); Segmented Neutrophils % 80.8 %; White Blood Count 13.1 K/mcL (4.3-11.1)
[2021-11-27 10:16] LABS: Adenovirus Not Detected (Not Detect); Bordetella Pertussis Not Detected (Not Detect); Chlamydophila pneumoniae Not Detected (Not Detect); Coronavirus 229E Not Detected (Not Detect); Coronavirus HKU1 Not Detected (Not Detect); Coronavirus NL63 Not Detected (Not Detect); Coronavirus OC43 Not Detected (Not Detect); Human Metapneumovirus Not Detected (Not Detect); Human Rhinovirus/Enterovirus Not Detected (Not Detect); Influenza A Subtype 2009 H1 Not Detected (Not Detect); Influenza B Not Detected (Not Detect); Mycoplasma pneumoniae Not Detected (Not Detect); Parainfluenza Virus 1 Not Detected (Not Detect); Parainfluenza Virus 2 Not Detected (Not Detect); Parainfluenza Virus 3 Not Detected (Not Detect); Parainfluenza Virus 4 Not Detected (Not Detect); Respiratory Syncytial Virus Not Detected (Not Detect); SARS-CoV-2 Not Detected (Not Detect)
[2021-11-27] MEDS: Sodium Bicarbonate 150 MEQ in Water for inj. (sterile) 1,000 ML IVC SCH ×2 (10:34→22:00)
[2021-11-27 10:37] LABS: Calcium 7.9 mg/dL (8.6-10.3); Potassium 3.4 mEq/L (3.5-5.1)
[2021-11-27] MEDS: Insulin LISPRO 300 UNITS/3 ML VIAL SUBQ SCH ×2 (17:50→17:58)
[2021-11-27] MEDS: Ampicillin/Sulbactam 3,000 MG in 0.9 % Sodium Chloride Mini Bag 100 ML IVPB SCH (21:30)
[2021-11-27] MEDS: Mirtazapine 15 MG TABLET PO SCH (21:33)
[2021-11-28] MEDS: MethylPREDNISolone 40 MG/ML VIAL IVP SCH ×3 (00:12→17:27)
[2021-11-28] MEDS: Albumin 25% 25gram/100mL 25 GM/100 ML IV.SOLN IVPB SCH ×3 (00:15→17:29)
[2021-11-28] MEDS: Ipratropium/Albuterol Neb 3 ML IH SCH ×7 (00:20→23:54)
[2021-11-28] MEDS: Ipratropium/Albuterol Neb 3 ML IH PRN (01:25)
[2021-11-28 03:08] LABS: Basophils % 0.1 %; Hematocrit 21.4 % (37.5-50.1); Hemoglobin 7.3 g/dL (12.9-16.9); Immature Granulocytes % 0.5 % (0-4); Lymphocytes # 0.9 K/mcL (0.6-4.6); Lymphocytes % 9.1 %; Mean Corpuscular HGB Conc 34.1 g/dL (31.6-35.5); Mean Corpuscular Hemoglobin 31.6 pg (28.0-33.3); Mean Corpuscular Volume 92.6 fL (83.0-100.0); Mean Platelet Volume 10.4 fL (9.4-12.4); Monocytes # 0.5 K/mcL (0.0-1.3); Neutrophils # 8.1 K/mcL (1.6-8.9); Platelet Count 241 K/mcL (140-400); Red Blood Count 2.31 M/mcL (4.19-5.50); Red Cell Distribution Width 13.8 % (11.5-14.5); Segmented Neutrophils % 85.3 %; White Blood Count 9.5 K/mcL (4.3-11.1)
[2021-11-28] MEDS: Ampicillin/Sulbactam 3,000 MG in 0.9 % Sodium Chloride Mini Bag 100 ML IVPB SCH ×2 (03:13→09:22)
[2021-11-28 03:27] LABS: Calcium 7.9 mg/dL (8.6-10.3); Magnesium 1.5 mg/dL (1.6-2.6); Phosphorous 5.7 mg/dL (2.7-4.5); Potassium 3.8 mEq/L (3.5-5.1)
[2021-11-28] MEDS: *HR* Heparin 5,000 UNIT/ML VIAL SQ SCH ×2 (05:17→17:27)
[2021-11-28] MEDS: Sodium Bicarbonate 150 MEQ in Water for inj. (sterile) 1,000 ML IVC SCH (07:14)
[2021-11-28] MEDS: Pantoprazole 40 MG VIAL IVP SCH (09:21)
[2021-11-28] MEDS: Aspirin 81 MG TAB.CHEW PO SCH (09:22)
[2021-11-28] MEDS: carvediloL 6.25 MG TABLET PO SCH ×2 (09:22→17:30)
[2021-11-28] MEDS: Lactobacillus 1 EACH CAP.SPRINK PO SCH ×2 (09:22→20:24)
[2021-11-28] MEDS: Insulin LISPRO 300 UNITS/3 ML VIAL SUBQ SCH ×4 (09:23→20:24)
[2021-11-28] MEDS ORDERED: Perflutren Lipid Microsphere 1.3 ML in 0.9 % Sodium Chloride 8.7 ML IVP PRN (12:03)
[2021-11-28] MEDS ORDERED: Furosemide 40 MG/4 ML VIAL IVP ONE (18:56)
[2021-11-28] MEDS ORDERED: Furosemide 80 MG in 0.9 % Sodium Chloride 50 ML IV ONE (19:00)
[2021-11-28] MEDS: Mirtazapine 15 MG TABLET PO SCH (20:24)
[2021-11-28 23:15] LABS: Hematocrit 23.6 % (37.5-50.1)
[2021-11-29] MEDS: Albumin 25% 25gram/100mL 25 GM/100 ML IV.SOLN IVPB SCH ×4 (00:30→23:41)
[2021-11-29] MEDS: MethylPREDNISolone 40 MG/ML VIAL IVP SCH ×4 (00:33→23:42)
[2021-11-29 01:05] LABS: Basophils % 0.1 %; Hematocrit 22.1 % (37.5-50.1); Hemoglobin 7.7 g/dL (12.9-16.9); Immature Granulocytes % 1.5 % (0-4); Lymphocytes # 0.8 K/mcL (0.6-4.6); Lymphocytes % 4.7 %; Mean Corpuscular HGB Conc 34.8 g/dL (31.6-35.5); Mean Corpuscular Hemoglobin 32.4 pg (28.0-33.3); Mean Corpuscular Volume 92.9 fL (83.0-100.0); Mean Platelet Volume 10.3 fL (9.4-12.4); Monocytes # 1.3 K/mcL (0.0-1.3); Monocytes % 7.1 %; Neutrophils # 15.4 K/mcL (1.6-8.9); Platelet Count 366 K/mcL (140-400); Red Blood Count 2.38 M/mcL (4.19-5.50); Red Cell Distribution Width 13.8 % (11.5-14.5); Segmented Neutrophils % 86.6 %
[2021-11-29 01:14] LABS: White Blood Count 17.8 K/mcL (4.3-11.1)
[2021-11-29 01:26] LABS: Calcium 8.1 mg/dL (8.6-10.3); Magnesium 2.5 mg/dL (1.6-2.6); Potassium 3.9 mEq/L (3.5-5.1)
[2021-11-29] MEDS: Ipratropium/Albuterol Neb 3 ML IH SCH ×7 (04:39→23:59)
[2021-11-29] MEDS: *HR* Heparin 5,000 UNIT/ML VIAL SQ SCH ×2 (05:03→18:04)
[2021-11-29] MEDS ORDERED: Furosemide 40 MG/4 ML VIAL IVP STA (07:06)
[2021-11-29] MEDS ORDERED: Furosemide 40 MG/4 ML VIAL ONE (07:07)
[2021-11-29] MEDS: Ondansetron 4 MG/2 ML VIAL IVP PRN (07:10)
[2021-11-29] MEDS: Ipratropium/Albuterol Neb 3 ML IH PRN (07:11)
[2021-11-29] MEDS ORDERED: Morphine Sulfate 2 MG/ML SYRINGE IVP ONE (07:15)
[2021-11-29] MEDS ORDERED: Acetylcysteine 10% 2 ML INHSOL IH ONE (07:19)
[2021-11-29] MEDS ORDERED: *HR* Heparin 10,000 UNIT/10 ML VIAL IV PRN (07:26)
[2021-11-29] MEDS ORDERED: 0.9 % Sodium Chloride 250 ML IVC PRN (07:26)
[2021-11-29] MEDS ORDERED: *HR* Promethazine 25 MG/ML VIAL IM ONE (07:28)
[2021-11-29] MEDS ORDERED: Furosemide 100 MG in 0.9 % Sodium Chloride 50 ML IV ONE (07:30)
[2021-11-29] MEDS ORDERED: 0.9 % Sodium Chloride 1,000 ML PRIME SCH (07:30)
[2021-11-29] MEDS ORDERED: Furosemide 100 MG in 0.9 % Sodium Chloride 50 ML IVPB ONE (07:33)
[2021-11-29] MEDS ORDERED: Heparin 1,000 UNITS/500 mL 500 ML ONE (08:25)
[2021-11-29] MEDS: Aspirin 81 MG TAB.CHEW PO SCH (08:36)
[2021-11-29] MEDS: Insulin LISPRO 300 UNITS/3 ML VIAL SUBQ SCH ×4 (08:37→20:12)
[2021-11-29] MEDS: carvediloL 6.25 MG TABLET PO SCH ×2 (08:37→17:46)
[2021-11-29] MEDS ORDERED: *HR* Heparin 5,000 UNIT/ML VIAL ONE (08:58)
[2021-11-29] MEDS ORDERED: Ampicillin/Sulbactam 3,000 MG in 0.9 % Sodium Chloride Mini Bag 100 ML IVPB SCH (09:00)
[2021-11-29] MEDS: Pantoprazole 40 MG VIAL IVP SCH (09:52)
[2021-11-29] MEDS: Piperacillin/Tazobactam 3.375 GM in 0.9 % Sodium Chloride Mini Bag 100 ML IVPB SCH ×2 (09:52→20:10)
[2021-11-29] MEDS ORDERED: *HR* Promethazine 25 MG/ML VIAL IM PRN (10:11)
[2021-11-29 14:17] LABS: Hepatitis B Surface Antibody < 3.10 mIU/mL
[2021-11-29 14:28] LABS: Hepatitis B Surface Antigen Nonreactive (Nonreactive)
[2021-11-29] MEDS: Mirtazapine 15 MG TABLET PO SCH (20:01)
[2021-11-30] MEDS ORDERED: HydrOXYzine 100 MG/2 ML VIAL IM ONE (01:31)
[2021-11-30] MEDS ORDERED: Furosemide 20 MG/2 ML VIAL IVP ONE (02:47)
[2021-11-30] MEDS ORDERED: *HR* LORazepam 2 MG/ML VIAL IM ONE (02:48)
[2021-11-30] MEDS: Levalbuterol Neb 1.25 MG/3 ML IH SCH ×6 (03:45→23:48)
[2021-11-30 03:51] LABS: Basophils % 0.1 %; Hematocrit 23.2 % (37.5-50.1); Hemoglobin 7.6 g/dL (12.9-16.9); Immature Granulocytes % 1.5 % (0-4); Lymphocytes # 0.9 K/mcL (0.6-4.6); Lymphocytes % 4.7 %; Mean Corpuscular HGB Conc 32.8 g/dL (31.6-35.5); Mean Corpuscular Hemoglobin 31.5 pg (28.0-33.3); Mean Corpuscular Volume 96.3 fL (83.0-100.0); Mean Platelet Volume 10.5 fL (9.4-12.4); Monocytes # 1.1 K/mcL (0.0-1.3); Monocytes % 6.1 %; Neutrophils # 15.9 K/mcL (1.6-8.9); Nucleated Red Blood Cells 0.1 /100 WBC (0); Platelet Count 296 K/mcL (140-400); Red Blood Count 2.41 M/mcL (4.19-5.50); Red Cell Distribution Width 14.3 % (11.5-14.5); Segmented Neutrophils % 87.6 %; White Blood Count 18.2 K/mcL (4.3-11.1)
[2021-11-30 04:07] LABS: Calcium 8.6 mg/dL (8.6-10.3); Potassium 4.3 mEq/L (3.5-5.1)
[2021-11-30] MEDS: *HR* Heparin 5,000 UNIT/ML VIAL SQ SCH ×2 (05:14→19:46)
[2021-11-30] MEDS: MethylPREDNISolone 40 MG/ML VIAL IVP SCH ×2 (08:02→15:26)
[2021-11-30] MEDS: Pantoprazole 40 MG VIAL IVP SCH (08:02)
[2021-11-30] MEDS: Albumin 25% 25gram/100mL 25 GM/100 ML IV.SOLN IVPB SCH ×2 (08:03→15:35)
[2021-11-30] MEDS: carvediloL 6.25 MG TABLET PO SCH ×2 (08:04→16:58)
[2021-11-30] MEDS: Aspirin 81 MG TAB.CHEW PO SCH (08:04)
[2021-11-30] MEDS: Insulin LISPRO 300 UNITS/3 ML VIAL SUBQ SCH ×4 (08:13→22:19)
[2021-11-30] MEDS: Piperacillin/Tazobactam 3.375 GM in 0.9 % Sodium Chloride Mini Bag 100 ML IVPB SCH ×2 (08:56→19:46)
[2021-11-30] MEDS ORDERED: *HR* Heparin 10,000 UNIT/10 ML VIAL IV PRN (09:09)
[2021-11-30] MEDS ORDERED: Albumin 25% 25gram/100mL 25 GM/100 ML IV.SOLN IVPB PRN (09:09)
[2021-11-30] MEDS ORDERED: 0.9 % Sodium Chloride 250 ML IVC PRN (09:09)
[2021-11-30] MEDS: Mirtazapine 15 MG TABLET PO SCH (20:01)
[2021-12-01] MEDS: Albumin 25% 25gram/100mL 25 GM/100 ML IV.SOLN IVPB SCH ×4 (00:07→23:23)
[2021-12-01] MEDS: MethylPREDNISolone 40 MG/ML VIAL IVP SCH ×4 (00:12→23:24)
[2021-12-01] MEDS: Levalbuterol Neb 1.25 MG/3 ML IH SCH ×6 (03:56→23:50)
[2021-12-01] MEDS ORDERED: Saliva Stimulant 44.3ml BOTTLE PO PRN (05:29)
[2021-12-01 05:38] LABS: Basophils % 0.1 %; Hematocrit 22.8 % (37.5-50.1); Hemoglobin 7.5 g/dL (12.9-16.9); Immature Granulocytes % 0.6 % (0-4); Lymphocytes # 0.6 K/mcL (0.6-4.6); Lymphocytes % 3.5 %; Mean Corpuscular HGB Conc 32.9 g/dL (31.6-35.5); Mean Corpuscular Hemoglobin 31.8 pg (28.0-33.3); Mean Corpuscular Volume 96.6 fL (83.0-100.0); Mean Platelet Volume 10.2 fL (9.4-12.4); Monocytes # 0.9 K/mcL (0.0-1.3); Monocytes % 4.9 %; Neutrophils # 16.1 K/mcL (1.6-8.9); Platelet Count 275 K/mcL (140-400); Red Blood Count 2.36 M/mcL (4.19-5.50); Red Cell Distribution Width 14.4 % (11.5-14.5); Segmented Neutrophils % 90.9 %; White Blood Count 17.7 K/mcL (4.3-11.1)
[2021-12-01 05:59] LABS: Calcium 9.1 mg/dL (8.6-10.3)
[2021-12-01] MEDS: *HR* Heparin 5,000 UNIT/ML VIAL SQ SCH ×2 (06:14→17:26)
[2021-12-01] MEDS: carvediloL 6.25 MG TABLET PO SCH ×2 (07:49→17:26)
[2021-12-01] MEDS: Aspirin 81 MG TAB.CHEW PO SCH (07:50)
[2021-12-01] MEDS: Piperacillin/Tazobactam 3.375 GM in 0.9 % Sodium Chloride Mini Bag 100 ML IVPB SCH ×2 (07:51→20:57)
[2021-12-01] MEDS: Pantoprazole 40 MG VIAL IVP SCH (07:52)
[2021-12-01] MEDS ORDERED: 0.9 % Sodium Chloride 250 ML IVC PRN (08:12)
[2021-12-01] MEDS ORDERED: *HR* Heparin 10,000 UNIT/10 ML VIAL IV PRN ×2 (08:12)
[2021-12-01] MEDS: Insulin LISPRO 300 UNITS/3 ML VIAL SUBQ SCH ×5 (09:21→20:58)
[2021-12-01] MEDS: Mirtazapine 15 MG TABLET PO SCH (20:59)
[2021-12-02 03:16] LABS: Basophils % 0.1 %; Hematocrit 22.2 % (37.5-50.1); Hemoglobin 7.3 g/dL (12.9-16.9); Immature Granulocytes % 0.6 % (0-4); Lymphocytes # 0.4 K/mcL (0.6-4.6); Lymphocytes % 2.4 %; Mean Corpuscular HGB Conc 32.9 g/dL (31.6-35.5); Mean Corpuscular Hemoglobin 31.6 pg (28.0-33.3); Mean Corpuscular Volume 96.1 fL (83.0-100.0); Monocytes # 0.6 K/mcL (0.0-1.3); Monocytes % 3.2 %; Neutrophils # 16.9 K/mcL (1.6-8.9); Platelet Count 219 K/mcL (140-400); Red Blood Count 2.31 M/mcL (4.19-5.50); Red Cell Distribution Width 14.5 % (11.5-14.5); Segmented Neutrophils % 93.7 %
[2021-12-02 03:34] LABS: Calcium 9.5 mg/dL (8.6-10.3); Potassium 4.1 mEq/L (3.5-5.1)
[2021-12-02] MEDS: Levalbuterol Neb 1.25 MG/3 ML IH SCH ×6 (03:58→23:23)
[2021-12-02] MEDS: *HR* Heparin 5,000 UNIT/ML VIAL SQ SCH ×2 (06:02→16:54)
[2021-12-02] MEDS: Ondansetron 4 MG/2 ML VIAL IVP PRN ×2 (06:14→15:08)
[2021-12-02] MEDS: Albumin 25% 25gram/100mL 25 GM/100 ML IV.SOLN IVPB SCH ×3 (08:25→23:10)
[2021-12-02] MEDS: Piperacillin/Tazobactam 3.375 GM in 0.9 % Sodium Chloride Mini Bag 100 ML IVPB SCH ×2 (08:26→20:13)
[2021-12-02] MEDS: MethylPREDNISolone 40 MG/ML VIAL IVP SCH ×3 (08:27→23:11)
[2021-12-02] MEDS: carvediloL 6.25 MG TABLET PO SCH ×2 (08:27→16:10)
[2021-12-02] MEDS: Insulin LISPRO 300 UNITS/3 ML VIAL SUBQ SCH ×4 (08:28→20:56)
[2021-12-02] MEDS: Pantoprazole 40 MG VIAL IVP SCH (08:28)
[2021-12-02] MEDS: Aspirin 81 MG TAB.CHEW PO SCH (08:28)
[2021-12-02] MEDS: Mirtazapine 15 MG TABLET PO SCH (21:39)
[2021-12-03] MEDS: Levalbuterol Neb 1.25 MG/3 ML IH SCH ×3 (03:40→11:51)
[2021-12-03 04:30] LABS: Basophils % 0.1 %; Hematocrit 21.5 % (37.5-50.1); Hemoglobin 6.9 g/dL (12.9-16.9); Lymphocytes # 0.4 K/mcL (0.6-4.6); Lymphocytes % 2.7 %; Mean Corpuscular HGB Conc 32.1 g/dL (31.6-35.5); Mean Corpuscular Hemoglobin 31.7 pg (28.0-33.3); Mean Corpuscular Volume 98.6 fL (83.0-100.0); Mean Platelet Volume 10.2 fL (9.4-12.4); Monocytes # 0.5 K/mcL (0.0-1.3); Monocytes % 3.5 %; Neutrophils # 14.3 K/mcL (1.6-8.9); Platelet Count 191 K/mcL (140-400); Red Blood Count 2.18 M/mcL (4.19-5.50); Segmented Neutrophils % 92.7 %; White Blood Count 15.4 K/mcL (4.3-11.1)
[2021-12-03 05:30] LABS: Calcium 9.5 mg/dL (8.6-10.3); Potassium 4.4 mEq/L (3.5-5.1)
[2021-12-03] MEDS: *HR* Heparin 5,000 UNIT/ML VIAL SQ SCH (05:59)
[2021-12-03 07:55] LABS: Hematocrit 22.2 % (37.5-50.1)
[2021-12-03] MEDS ORDERED: *HR* Heparin 10,000 UNIT/10 ML VIAL IV PRN (08:59)
[2021-12-03] MEDS ORDERED: 0.9 % Sodium Chloride 250 ML IVC PRN (08:59)
[2021-12-03] MEDS: Insulin LISPRO 300 UNITS/3 ML VIAL SUBQ SCH ×2 (10:15→11:53)
[2021-12-03] MEDS: Aspirin 81 MG TAB.CHEW PO SCH (11:05)
[2021-12-03] MEDS: carvediloL 6.25 MG TABLET PO SCH ×2 (11:05→15:42)
[2021-12-03] MEDS: MethylPREDNISolone 40 MG/ML VIAL IVP SCH ×2 (11:13→15:45)
[2021-12-03] MEDS: Pantoprazole 40 MG VIAL IVP SCH (11:14)
[2021-12-03] MEDS: Piperacillin/Tazobactam 3.375 GM in 0.9 % Sodium Chloride Mini Bag 100 ML IVPB SCH (11:14)
[2021-12-03] MEDS: Albumin 25% 25gram/100mL 25 GM/100 ML IV.SOLN IVPB SCH (11:15)
[2021-12-03 11:26] VITALS: BP 107/52; TEMP 98.1
[2021-12-03 12:16] VITALS: O2SAT 100
[2021-12-03] MEDS ORDERED: Scopolamine Patch 1.5 MG PATCH.TD72 TD SCH (13:30)
[2021-12-03 14:51] VITALS: PULSE 80
[2021-12-03] MEDS: *HR* FentaNYL (PF) 100 MCG/2 ML VIAL IVP PRN ×4 (16:30→22:38)
[2021-12-03] MEDS: *HR* LORazepam 2 MG/ML VIAL IVP PRN ×2 (16:33→20:15)
[2021-12-04] MEDS: *HR* LORazepam 2 MG/ML VIAL IVP PRN ×3 (00:33→07:46)
[2021-12-04] MEDS: MethylPREDNISolone 40 MG/ML VIAL IVP SCH ×3 (01:21→07:30)
[2021-12-04] MEDS: *HR* FentaNYL (PF) 100 MCG/2 ML VIAL IVP PRN ×2 (05:44→06:56)
[2021-12-04] MEDS: carvediloL 6.25 MG TABLET PO SCH ×2 (07:24→07:31)
[2021-12-04] MEDS: Aspirin 81 MG TAB.CHEW PO SCH (07:24)
== END 2021-12-04 08:18 | disposition expired | DRG 682 ==
LOC: 2ANU 12:45 → EMEROOARM 12:45 → SUATTDRO 19:01 → 2ANU 20:43 → SUATTDRO 11-22 08:58 → 2NNU 11-29 18:42 → 2ANU 12-03 17:54
PROVIDERS: ADMIT Internal Medicine; ATTEND Family Medicine